=== PATIENT | female | born 1960 | race Two or more races ===

== ENCOUNTER 2017-04-26 21:59 | Emergency (ER) | payer SELFPAY ==
[~2017-04-26] VITALS: Ht 152.4 cm; Wt 87.1 kg
[~2017-04-26 21:59] MED LIST: ACYCLOVIR400 MG ORAL; ARTIFICIAL TEAR15 M2 OP; LACRI-LUBE1 APPLIC RIGHT EYE; LORAZEPAM0.5 MG ORAL; MAALOX ADVANCE1 EACH PO; OMEPRAZOLE40 M1 ORAL; ZANTAC150 MG ORAL
[2017-04-26] MEDS ORDERED: LIPITOR20 MG ORAL (22:09)
[2017-04-26] MEDS ORDERED: CITALOPRAM HBR20 M1 ORAL (22:09)
[2017-04-26] MEDS ORDERED: AMITRIPTYLINE H10 MG ORAL (22:09)
[2017-04-26 22:14] VITALS: BP 125/78
--- NOTE | 2017-04-26 22:23 | Emergency Room Report ---
History of Present Illness General Chief Complaint: Flu Like Symptoms Source: Patient Present Illness HPI Patient present with complaints of cough Fever Symptoms ongoing now for the past 4 days Patient is now having pain in the mid sternal chest area back Denies any vomiting or diarrhea patient also complains of a sore throat Denies any recent travel denies any pleurisy Allergies: Coded Allergies: No Known Allergies (Unverified , 02/04/13) Patient History Past Medical History: see triage record Pertinent Family History: none Last Menstrual Period: n/a Reviewed Nursing Documentation: PMH: Agreed, PSxH: Agreed Nursing Documentation-PMH Past Medical History: No History, Except For Review of Systems All Other Systems: negative except mentioned in HPI Physical Exam Vital Signs Date Time Temp Pulse Resp B/P (MAP) Pulse Ox O2 Delivery O2 Flow Rate FiO2 04/26/17 22:02 97.9 87 16 125/78 95 04/26/17 22:12 Room Air Sp02 EP Interpretation: reviewed, normal General Appearance: well appearing, no apparent distress Head: normocephalic, atraumatic Eyes: bilateral eye PERRL, bilateral eye EOMI ENT: hearing grossly normal, normal pharynx, TMs + canals normal, uvula midline Neck: full range of motion, supple, no meningismus, no bony tend Respiratory: lungs clear, normal breath sounds, no rhonchi, no respiratory distress, no retraction, no accessory muscle use Cardiovascular #1: normal peripheral pulses, regular rate, rhythm, no edema, no gallop, no JVD, no murmur Gastrointestinal: normal bowel sounds, non tender, soft, no mass, no organomegaly, non-distended, no guarding, no hernia, no pulsatile mass, no rebound Genitourinary: no CVA tenderness Musculoskeletal: normal inspection Neurologic: oriented x3, responsive, title abstractor III-XII nml as tested, motor strength/ tone normal, sensory intact Psychiatric: mood/affect normal Skin: normal color, no rash, warm/dry, palpation normal Lymphatic: normal inspection, no adenopathy Medical Decision Making Diagnostic Impression: Primary Impression: Influenza-like symptoms ER Course Multiple differentials are considered patient has x-ray obtained Shows evidence of vital hernia Patient reports that she is aware of diagnosis of hiatal hernia patient has specialist are following her and reports that she is having further intervention At this time given the lack of any obvious bacteria infection Patient also 4 days into the symptoms was not appropriate for Tamiflu and will have close outpatient followup Chest X-Ray Diagnostic Results Chest X-Ray Diagnostic Results : Chest X-Ray Ordered: Yes # of Views/Limited/Complete: 1 View Indication: Shortness of Breath EP Interpretation: Yes Interpretation: no consolidation, no effusion, no pneumothorax, other - hiatal hernia Impression: No acute disease Electronically Signed by: Valeria Wagner DO Last Vital Signs Date Time Temp Pulse Resp B/P (MAP) Pulse Ox O2 Delivery O2 Flow Rate FiO2 04/26/17 22:14 97.9 87 16 125/78 95 Room Air Status: improved Disposition: HOME, SELF-CARE Condition: Improved Scripts Dextromethorphan Hb/Doxylamine (ROBITUSSIN NIGHTTIME COUGH DM) 237 Ml Liquid 10 ML PO QHS for 5 Days, ML Prov: VALERIA WAGNER D.O. 04/26/17 Additional Instructions: Patient is provided with the discharge instructions notified to follow up with primary doctor in the next 2-3 days otherwise return to the er with any worsening symptoms. Please note that this report is being documented using [employer] technology. This can lead to erroneous entry secondary to incorrect interpretation by the dictating instrument. VALERIA WAGNER D.O. Apr 26, 2017 22:23
[2017-04-26] MEDS ORDERED: Promethazine/Codeine 5ml UD ORAL ONE (22:30)
[2017-04-26] MEDS ORDERED: ROBITUSSIN NIG237 ML PO (23:27)
[2017-04-26 23:32] VITALS: BP 125/78
--- NOTE | 2017-04-27 10:07 | Diagnostic Imaging Report ---
Indication: Shortness of breath Technique: XRAY Chest 1v Comparison: 02/04/2013 Findings: Heart size and mediastinal contours are within normal limits. There is elevation of the left hemidiaphragm with gaseous distention of loops of likely stomach and colon projecting over the left lower chest. There is streaky atelectasis at the left base. The right lung is clear. No acute osseous abnormality seen. Impression: No focal airspace consolidation, pleural effusion or pneumothorax. Elevation of the left hemidiaphragm with streaky atelectasis at the left base.
== END 2017-04-26 23:33 | disposition home or self-care (01) ==
LOC: EMR 22:20
DX: J11.1 Influenza due to unidentified influenza virus with other respiratory manifestations (principal)
CPT/HCPCS: 71045; 99283

== ENCOUNTER 2018-03-25 09:47 | Emergency (ER) | payer SELFPAY ==
[~2018-03-25] VITALS: Ht 152.4 cm; Wt 81.6 kg
[~2018-03-25 09:47] MED LIST changes: +AMITRIPTYLINE H10 MG ORAL; +CITALOPRAM HBR20 M1 ORAL; +LIPITOR20 MG ORAL; +ROBITUSSIN NIG237 ML PO
[2018-03-25 10:03] VITALS: BP 145/71
[2018-03-25] MEDS ORDERED: Lidocaine 2% Visc 15ml soln ORAL ONE (10:15)
[2018-03-25] MEDS ORDERED: Mylanta II UD 30ml ORAL ONE (10:15)
[2018-03-25 10:25] LABS: BASOPHILS % (AUTO) 1.1 % (0.0-2.0); EOSINOPHILS % (AUTO) 1.3 % (0.0-3.0); HEMATOCRIT 43.2 % (37.0-47.0); HEMOGLOBIN 14.4 G/DL (12.0-16.0); LYMPHOCYTES % (AUTO) 19.9 % (20.0-45.0); MEAN CORPUSCULAR VOLUME 87 FL (80-99); MONOCYTES % (AUTO) 6.4 % (1.0-10.0); NEUTROPHILS % (AUTO) 71.4 % (45.0-75.0); PLATELET COUNT 283 K/UL (150-450); RED BLOOD COUNT 4.97 M/UL (4.20-5.40); RED CELL DISTRIBUTION WIDTH 12.1 % (11.6-14.8); WHITE BLOOD COUNT 7.8 K/UL (4.8-10.8)
[2018-03-25 10:31] LABS: BILIRUBIN, URINE NEGATIVE (NEGATIVE); COLOR,URINE PALE YELLOW; GLUCOSE, URINE (UA) NEGATIVE (NEGATIVE); KETONES,URINE NEGATIVE (NEGATIVE); LEUKOCYTE ESTERASE ,URINE 1+ (NEGATIVE); NITRITE,URINE NEGATIVE (NEGATIVE); PH,URINE 7 (4.5-8.0); PROTEIN,URINE NEGATIVE (NEGATIVE); UROBILINOGEN,URINE NORMAL MG/DL (0.0-1.0)
[2018-03-25 10:34] LABS: APPEARANCE,URINE SLIGHTLY CLOUDY
[2018-03-25 10:43] LABS: INR 1.1 (0.9-1.1)
[2018-03-25 10:47] LABS: ALANINE AMINOTRANSFERASE 39 U/L (12-78); ALBUMIN 3.7 G/DL (3.4-5.0); ALBUMIN/GLOBULIN RATIO 0.8 (1.0-2.7); ALKALINE PHOSPHATASE 87 U/L (46-116); ANION GAP 12 mmol/L (5-15); ASPARTATE AMINO TRANSFERASE 25 U/L (15-37); BILIRUBIN,TOTAL 0.4 MG/DL (0.2-1.0); BLOOD UREA NITROGEN 9 mg/dL (7-18); CALCIUM 9.1 MG/DL (8.5-10.1); CARBON DIOXIDE 24 MMOL/L (21-32); CHLORIDE 103 MMOL/L (98-107); CREATININE 0.8 MG/DL (0.55-1.30); POTASSIUM 3.6 MMOL/L (3.5-5.1); SODIUM 139 MMOL/L (136-145)
[2018-03-25 11:51] VITALS: BP 141/70
--- NOTE | 2018-03-25 12:42 | Emergency Room Report ---
History of Present Illness General Chief Complaint: Abdominal Pain Source: Patient, Family Member Present Illness HPI This patient has multiple complaints. She states that this morning she felt lightheaded and thought she was going to faint multiple times. She states she also felt a burning sensation going up her legs through to her abdomen. She is concerned because she did take an tablet of her Celexa. She does have a history of anxiety and panic. She denies recent illness. She denies fever or chills. She denies nausea or vomiting. She denies chest pain or shortness of breath. She states that at this time her symptoms have resolved. She has no other complaints. Allergies: Coded Allergies: No Known Allergies (Unverified , 02/04/13) Patient History Past Medical History: see triage record, GERD, psych hx - Anxiety, depression, other - HLP Social History: Denies: smoking, alcohol use, drug use Last Menstrual Period: na Reviewed Nursing Documentation: PMH: Agreed; PSxH: Agreed Nursing Documentation-PMH Past Medical History: No History, Except For Review of Systems All Other Systems: negative except mentioned in HPI Physical Exam Vital Signs Date Time Temp Pulse Resp B/P (MAP) Pulse Ox O2 Delivery O2 Flow Rate FiO2 03/25/18 09:49 97.3 81 18 150/71 98 Room Air Sp02 EP Interpretation: reviewed, normal General Appearance: no apparent distress, alert, GCS 15, non-toxic, obese Head: normocephalic, atraumatic Eyes: bilateral eye normal inspection, bilateral eye PERRL ENT: hearing grossly normal, normal pharynx, no angioedema, normal voice Neck: full range of motion, supple/symm/no masses Respiratory: chest non-tender, lungs clear, normal breath sounds, no respiratory distress, no retraction, no accessory muscle use, speaking full sentences Cardiovascular #1: regular rate, rhythm, no edema Gastrointestinal: normal bowel sounds, non tender, soft, non-distended, no guarding, no rebound Rectal: deferred Musculoskeletal: back normal, gait/station normal, normal range of motion, non- tender Neurologic: alert, oriented x3, responsive, motor strength/tone normal, sensory intact, speech normal Psychiatric: judgement/insight normal, memory normal, mood/affect normal, no suicidal/homicidal ideation Skin: normal color, no rash, warm/dry, well hydrated Medical Decision Making Diagnostic Impression: Primary Impression: Pre-syncope Additional Impression: UTI (urinary tract infection) ER Course I suspect the pre-syncope that the patient is presenting with is a nonemergent in etiology. Regarding the history, the patient has no history of structural heart disease or coronary artery disease, no family history of sudden , has no shortness of breath, and the syncope is not exertional. On physical exam , the patient is not hypotensive, has no findings of CHF, and no significant cardiac murmur suggestive of valvular heart disease or cardiac outflow obstruction. The patient reports no history of seizure or head trauma. On laboratory evaluation, blood sugar was normal and the patient is not anemic. The patient was counseled that, though unlikely, the possibility of an emergent cause of syncope may be present and that the patient should return immediately if symptoms persist or worsen. I believe the patient is stable for discharge to followup with her PMD for further workup. Laboratory Tests Test 03/25/18 09:50 03/25/18 10:10 Urine Color Pale yellow Urine Appearance Slightly cloudy Urine pH 7 (4.5-8.0) Urine Specific [place] 1.005 (1.005-1.035) Urine Protein Negative (NEGATIVE) Urine Glucose (UA) Negative (NEGATIVE) Urine Ketones Negative (NEGATIVE) Urine Blood Negative (NEGATIVE) Urine Nitrite Negative (NEGATIVE) Urine Bilirubin Negative (NEGATIVE) Urine Urobilinogen Normal MG/DL (0.0-1.0) Urine Leukocyte Esterase 1+ (NEGATIVE) H Urine RBC 0-2 /HPF (0 - 2) Urine WBC 5-10 /HPF (0 - 2) H Urine Squamous Epithelial Cells Few /LPF (NONE/OCC) Urine Bacteria Few /HPF (NONE) White Blood Count 7.8 K/UL (4.8-10.8) Red Blood Count 4.97 M/UL (4.20-5.40) Hemoglobin 14.4 G/DL (12.0-16.0) Hematocrit 43.2 % (37.0-47.0) Mean Corpuscular Volume 87 FL (80-99) Mean Corpuscular Hemoglobin 28.9 PG (27.0-31.0) Mean Corpuscular Hemoglobin Concent 33.3 G/DL (32.0-36.0) Red Cell Distribution Width 12.1 % (11.6-14.8) Platelet Count 283 K/UL (150-450) Mean Platelet Volume 6.9 FL (6.5-10.1) Neutrophils (%) (Auto) 71.4 % (45.0-75.0) Lymphocytes (%) (Auto) 19.9 % (20.0-45.0) L Monocytes (%) (Auto) 6.4 % (1.0-10.0) Eosinophils (%) (Auto) 1.3 % (0.0-3.0) Basophils (%) (Auto) 1.1 % (0.0-2.0) Prothrombin Time 11.3 SEC (9.30-11.50) Prothrombin Time INR 1.1 (0.9-1.1) PTT 28 SEC (23-33) Sodium Level 139 MMOL/L (136-145) Potassium Level 3.6 MMOL/L (3.5-5.1) Chloride Level 103 MMOL/L (98-107) Carbon Dioxide Level 24 MMOL/L (21-32) Anion Gap 12 mmol/L (5-15) Blood Urea Nitrogen 9 mg/dL (7-18) Creatinine 0.8 MG/DL (0.55-1.30) Estimate Glomerular Filtration Rate > 60 mL/min (>60) Glucose Level 148 MG/DL (74-106) H Calcium Level 9.1 MG/DL (8.5-10.1) Total Bilirubin 0.4 MG/DL (0.2-1.0) Aspartate Amino Transferase (AST) 25 U/L (15-37) Alanine Aminotransferase (ALT) 39 U/L (12-78) Alkaline Phosphatase 87 U/L (46-116) Troponin I 0.016 ng/mL (0.000-0.056) Total Protein 8.4 G/DL (6.4-8.2) H Albumin 3.7 G/DL (3.4-5.0) Globulin 4.7 g/dL Albumin/Globulin Ratio 0.8 (1.0-2.7) L Lipase 125 U/L (73-393) Last Vital Signs Date Time Temp Pulse Resp B/P (MAP) Pulse Ox O2 Delivery O2 Flow Rate FiO2 03/25/18 11:51 97.3 89 20 141/70 98 Room Air Status: improved Disposition: HOME, SELF-CARE Condition: Improved Referrals: NOT CHOSEN IPA/MD,REFERRING (PCP) Theodora Tsai DO Mar 25, 2018 12:42
[2018-03-25] MEDS ORDERED: NITROFURANTOIN100 M2 ORAL (13:05)
[2018-03-25 13:13] VITALS: BP 137/72
== END 2018-03-25 13:13 | disposition home or self-care (01) ==
LOC: EMR 10:40
DX: R55 Syncope and collapse (principal); N39.0 Urinary tract infection, site not specified
CPT/HCPCS: 36415; 80053; 81003; 83690; 84484; 85025; 85610; 85730; 96361; 96374; 99284; S0028